=== PATIENT | male | born 1950 | race Caucasian/White ===

== ENCOUNTER 2021-02-28 08:31 | Outpatient (CLI) | payer OTHER ==
[~2021-02-28 08:31] MED LIST: None at this time
== END 2021-02-28 23:59 | disposition home or self-care (01) ==
LOC: WOUND 08:31
PROVIDERS: ATTEND Podiatrist Foot & Ankle Surgery
DX: L84 Corns and callosities (principal); M17.10 Unilateral primary osteoarthritis, unspecified knee; M79.671 Pain in right foot; G62.9 Polyneuropathy, unspecified; M79.672 Pain in left foot; Z87.891 Personal history of nicotine dependence
CPT/HCPCS: 97597; 99204; 99214